=== PATIENT | female | born 1960 | race Caucasian/White ===

== ENCOUNTER 2018-06-09 17:48 | Inpatient (IN) ==
[2018-06-09 19:28] VITALS: BP 106/58
[2018-06-09] MEDS ORDERED: MORPHINE SUL Oral CONC 10 MG/0.5 ML ORAL.SYG SL PRN (19:55)
[2018-06-09] MEDS ORDERED: *HR* LORazepam Oral Conc 2 MG/ML PO PRN (19:57)
[2018-06-09] MEDS ORDERED: Atropine 1% Opth Drops 100 DROP/5 ML BOTTLE SL PRN (19:57)
[2018-06-09] MEDS ORDERED: Acetaminophen 650 MG RECTAL SUPP RC PRN (19:58)
== END 2018-06-09 20:50 | disposition expired | DRG 66 ==
LOC: INPPIK 18:51
PROVIDERS: ADMIT Internal Medicine; ATTEND Internal Medicine